=== PATIENT | male | born 2000 | race Caucasian/White ===

== ENCOUNTER 2024-11-23 11:02 | Emergency (ER) | payer OTHER ==
[~2024-11-23] VITALS: Ht 182.9 cm; Wt 70.4 kg
[2024-11-23 11:03] VITALS: BP 132/72; PULSE 70; RESP 16; TEMP 98; O2SAT 100
[2024-11-23] MEDS: LIDOcaine 1% 30ml preserv. free vial SQ STA (11:28)
== END 2024-11-23 12:31 | disposition home or self-care (01) ==
LOC: ER 11:04
DX: S61.210A Laceration without foreign body of right index finger without damage to nail, initial encounter (principal); W22.8XXA Striking against or struck by other objects, initial encounter; Y93.89 Activity, other specified; Y92.89 Other specified places as the place of occurrence of the external cause; Y99.8 Other external cause status
CPT/HCPCS: 12001; 73140; 99283; A6449